=== PATIENT | male | born 1995 | race Two or more races ===

== ENCOUNTER 2019-06-04 05:58 | Emergency (ER) | payer OTHER ==
[~2019-06-04] VITALS: Ht 180.3 cm; Wt 64.0 kg
[2019-06-04 06:57] VITALS: BP 95/60
== END 2019-06-04 06:58 | disposition home or self-care (01) ==
LOC: ER 05:58
DX: Z02.89 Encounter for other administrative examinations (principal); F12.10 Cannabis abuse, uncomplicated
CPT/HCPCS: 99283